=== PATIENT | female | born 1960 | race Caucasian/White ===

== ENCOUNTER 2020-04-16 09:31 | Outpatient (CLI) | payer OTHER ==
--- NOTE | 2020-04-16 12:18 | CT ---
ABDOMEN AND PELVIC CT SCAN WITH AND WITHOUT IV CONTRAST: HISTORY: Microscopic hematuria. FINDINGS: Gross hematuria several months ago with microscopic hematuria since. FINDINGS: There is a 0.3 x 0.4 cm circumscribed nodule in the right middle lobe as well as a subpleural nodule 0.3 cm in the left lower lobe. Consider followup complete chest CT scan in 1 year for followup. The liver appears unremarkable. Status post cholecystectomy. Pancreas, spleen, and adrenal glands unre markable. No renal calculus or acute obstruction. Several small circumscribed hypodensities with in the kidneys, statistically small cysts. No large or small bowel obstruction. Normal-appearing ap pendix. Urinary bladder is empty but is unremarkable. Status post hysterectomy. Mild grade I anter olisthesis of L5 on S1. 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 IMPRESSION: Small circumscribed pulmonary nodules less than 0.4 cm in size. One-year followup chest CT scan sugg ested. No renal calculus or obstruction. Several circumscribed renal hypodensities, statistically small cysts. Other findings as above. POS: [facility]
[2020-04-16] MEDS ORDERED: Iopamidol-370 76% 500 ML 1 ML ONE (14:13)
== END 2020-04-16 09:32 | disposition home or self-care (01) ==
LOC: BICCT 09:31
PROVIDERS: ATTEND Urology
DX: R31.29 Other microscopic hematuria (principal); R91.8 Other nonspecific abnormal finding of lung field; N28.1 Cyst of kidney, acquired; M43.17 Spondylolisthesis, lumbosacral region; R91.1 Solitary pulmonary nodule; N28.89 Other specified disorders of kidney and ureter; Z90.49 Acquired absence of other specified parts of digestive tract; Z90.710 Acquired absence of both cervix and uterus
CPT/HCPCS: 74178; Q9967

== ENCOUNTER 2020-10-07 08:24 | Outpatient (CLI) | payer OTHER ==
--- NOTE | 2020-10-07 09:08 | CT ---
CT CHEST WITHOUT CONTRAST: Date: 10/07/2020 INDICATION: Follow-up pulmonary nodule. Comparison made to CT abdomen dated 04/16/2020. That exam described a 4 mm nodule in the right middle lobe. FINDINGS: The 4-5 mm nodule in the right middle lobe is again noted. Tiny 3.0 mm nodule is also seen in the anterior right middle lobe. 3-4 mm nodule peripheral right upper lobe, image 42. 4.0 mm nodule pleural based left lower lobe, image 79. Chronic lung changes are seen. Pleural based interstitial prominence seen in the posterior lower lobe s bilaterally. Mediastinum unremarkable. Nonspecific lymph nodes. Images through upper abdomen unremarkable. Osseous structures unremarkable. IMPRESSION: Small bilateral pulmonary nodules as described above. Recommend 1 year follow-up noncontrast chest CT . POS: [facility]
== END 2020-10-07 08:25 | disposition home or self-care (01) ==
LOC: BICCT 08:24
PROVIDERS: ATTEND Urology
DX: R91.8 Other nonspecific abnormal finding of lung field (principal); Z72.0 Tobacco use
CPT/HCPCS: 71250